=== PATIENT | female | born 1965 | race Caucasian/White ===

== ENCOUNTER 2016-11-29 05:15 | Day surgery (SDC) | payer OTHER ==
[~2016-11-29] VITALS: Ht 165.1 cm; Wt 90.0 kg
[~2016-11-29 05:15] MED LIST: ADVAIR 250/501 DISK IH; ALAVERT10 MG PO; ALBUTEROL SULF8.5 GM IH; ALPRAZOLAM0.5 MG PO; AMITRIPTYLINE H75 MG PO; AMLODIPINE BES2.5 MG; AMLODIPINE BESY10 MG PO; AMLODIPINE BESYL5 MG PO; AMOXICILLIN250 MG PO; ANTI-ITCH56 GM TP; ASPIR-LOW81 MG PO; ASPIRIN81 M1 PO; ASPIRIN81 M2 PO; ASTELIN137 MCG/0. NS; ATIVAN1 MG PO; AUGMENTIN875 MG PO; BACTRIM,SEPT1 TABLET PO; BUSPAR15 MG PO; CALCIUM + D 601 EACH PO; CELEBREX200 MG PO; CEPHALEXIN250 M2 NG; CLEOCIN300 MG PO; CLONAZEPAM1 M1 PO; COMBIVENT200 INHALA IH; CRESTOR20 MG PO; CRESTOR40 MG PO; CYCLOBENZAPRINE10 MG PO; CYMBALTA20 MG PO; CYMBALTA30 MG PO; CYMBALTA60 MG PO; DAYTRANA20 MG PO; DETROL2 MG PO; DIOVAN160 MG PO; DIOVAN320 MG PO; DOXYCYCLINE HY100 MG PO; Diovan PO; EFFEXOR XR150 MG PO; EFFEXOR XR75 MG PO; ESTR PO; FIORICET 50-301 EACH PO; FISH OIL 1,2001 EAC3 PO; FLEXERIL10 MG PO; FLEXERIL5 MG PO; FLONASE16 G1 BOTH NARES; FLOVENT 22120 INHALA IH; FLOVENT DISKUS1 DIS2 IH; FUROSEMIDE20 MG PO; GABAPENTIN600 MG PO; GABAPENTIN800 MG PO; GLUCOPHAGE1000 MG PO; HUMALOG MI100 UNIT/4 SQ; HYDROCODON-ACE1 EAC7 PO; IBUPROFEN600 MG PO; IBUPROFEN800 MG PO; INDOCIN25 MG PO; IPRATR-ALBUTEROL3 ML IH; IRON325 MG PO; KEFLEX500 MG PO; LABETOLOL PO; LANTUS 10100 UNITS/ SC; LANTUS SC; LASIX20 MG PO; LEVAQUIN500 MG PO; LEVAQUIN750 MG PO; LIDOCAINE20 MG/1 M5 PO; LIDODERM 5% P1 PATCH PO; LISINOPRIL30 MG PO; Lasix PO; MEDROL DOSEPAK4 MG PO; MELATONIN5 M1 PO; MELATONIN5 M3 PO; METFORMIN HCL1000 M1 PO; MORPHINE SULFAT15 M1 PO; MOTRIN800 MG PO; MUCINEX D ER T1 EACH PO; MULTI-BETIC TA1 EACH PO; MULTIVITAMIN PO; MULTIVITAMIN1 EAC2 PO; NAPROSYN500 MG PO; NAPROXEN500 MG PO; NEURONTIN800 MG PO; NEXIUM40 MG PO; NORCO 5/3251 TABLET PO; NORCO 7.5/321 TABLET PO; NORVASC10 MG PO; NORVASC2.5 MG PO; NORVASC5 MG PO; Neurontin PO; Norvasc PO; OMEPRAZOLE20 MG PO; OXYCODONE HCL10 M1 PO; OXYCODONE5 MG PO; PEPCID20 MG PO; PERCOCET 10/1 TABLET PO; PERCOCET 5/31 TABLET PO; PREDNISONE10 MG PO; PREDNISONE20 MG PO; PREDNISONE50 MG PO; PREMARIN VAGI42.5 GM; PREMARIN VAGI42.5 GM TP; PREMARIN VAGI42.5 GM VG; PRILOSEC20 MG PO; PROAIR HFA8.5 GM IH; PROBIOTIC1 EAC1 PO; PROBIOTIC1 EAC2 PO; PROTONIX40 MG PO; Percocet 5/325,Endoc PO; Proventil,Ventolin H IH; RISPERDAL1 MG PO; SOMA350 MG PO; SPIRIVA1 INHALATI IH; SYMBICORT60 INHALA1 IH; TESSALON PERLE100 MG PO; TESSALON200 MG PO; TORADOL10 MG PO; TRAMADOL HCL50 MG PO; TRAZODONE HCL150 MG PO; TRICOR145 MG PO; TYLENOL 8 HOUR650 MG PO; ULTRAM50 MG PO; VERAPAMIL HCL180 MG PO; VERELAN 180 MG180 MG PO; VESICARE10 MG PO; VICODIN 5-3001 EACH PO; VIT C 500 MG-E500 MG PO; VITAMIN D32000 UNI1 PO; VOLTAREN75 MG PO; XANAX0.5 MG PO; ZITHROMAX Z-PA250 MG PO; ZOFRAN8 MG PO; [UNRECOGNIZED DRUG - OTHER] PO
[2016-11-29] MEDS ORDERED: SPIRIVA1 INHALATI IH (06:10)
[2016-11-29] MEDS ORDERED: SYMBICORT60 INHALAT IH (06:11)
[2016-11-29 06:13] VITALS: BP 102/56
[2016-11-29 06:24] LABS: EOSINOPHIL COUNT 0.1 K/uL (0-0.3); HEMATOCRIT 35.1 % (36.0-46.0); IMMATURE GRANULOCYTE (%) 0.3 % (0.0-0.7); IMMATURE GRANULOCYTE COUNT 0.2 K/uL; LYMPHOCYTE COUNT 2.9 K/uL (1.0-2.8); MCH 28.6 PG (29.0-34.0); MCHC 33.6 G/DL (30.0-36.0); MEAN PLAT.VOLUME 9.5 uM^3 (9.5-12.4); MONOCYTE (%) 9.1 % (3-12); MONOCYTE COUNT 0.6 K/uL (0-0.8); NEUTROPHIL (%) 42.9 % (45-76); NEUTROPHIL COUNT 2.8 K/uL (1.8-6.4); PLATELET COUNT 265 K/uL (156-360); RBC DIS.WIDTH-SD 39.4 % (39-53); RED BLOOD COUNT 4.13 M/uL (3.80-5.20); WHITE BLOOD COUNT 6.4 K/uL (4.1-10.2)
[2016-11-29 06:32] LABS: CHLORIDE 103 mEq/L (99-109); SODIUM 138 mEq/L (136-147)
[2016-11-29 06:35] LABS: GLUCOSE 175 mg/dL (70-99)
[2016-11-29 06:36] LABS: ANION GAP 12 MEQ/L (2-14); TOTAL BILIRUBIN 0.2 mg/dL (0.0-1.0)
[2016-11-29 06:38] LABS: ALKALINE PHOSPHATASE 51 IU/L (3-129); GFR ESTIMATE (CALCULATED) 34 mL/min/
[2016-11-29 06:39] LABS: UREA NITROGEN (BUN) 35 mg/dL (9-23)
[2016-11-29 06:47] LABS: QUANTITATIVE HCG 5.3 MIU/ML
[2016-11-29 07:40] LABS: METH RESISTANT S AUREUS PCR NEGATIVE (NEGATIVE)
[2016-11-29 07:43] LABS: PROBE CHECK PASS; SPECIMEN PROCESSING CONTROL PASS
[2016-11-29 09:55] VITALS: BP 90/48
[2016-11-29 10:25] VITALS: BP 90/56
== END 2016-11-29 10:25 | disposition home or self-care (01) ==
LOC: SDC 05:15
PROVIDERS: Obstetrics & Gynecology
DX: N87.9 Dysplasia of cervix uteri, unspecified (principal); R87.810 Cervical high risk human papillomavirus (HPV) DNA test positive; F17.200 Nicotine dependence, unspecified, uncomplicated; F41.9 Anxiety disorder, unspecified; J45.909 Unspecified asthma, uncomplicated; I10 Essential (primary) hypertension; E78.5 Hyperlipidemia, unspecified
CPT/HCPCS: 80053; 82948; 84702; 85025; 87641; 88305; 88307; J1100; J1170; J1885; J2250; J2405; J3010

== ENCOUNTER 2016-12-12 20:30 | Emergency (ER) | payer OTHER ==
[~2016-12-12] VITALS: Ht 165.1 cm; Wt 93.4 kg
[~2016-12-12 20:30] MED LIST changes: +SYMBICORT60 INHALAT IH
[2016-12-12 21:02] LABS: MCH 28.4 PG (29.0-34.0); MCHC 32.7 G/DL (30.0-36.0); MCV 86.8 FL (83-99); MEAN PLAT.VOLUME 9.4 uM^3 (9.5-12.4); PLATELET COUNT 215 K/uL (156-360); RBC DIS.WIDTH-CV 12.7 % (11.8-14.6); RBC DIS.WIDTH-SD 38.9 % (39-53); WHITE BLOOD COUNT 9.3 K/uL (4.1-10.2)
[2016-12-12 21:13] LABS: CHLORIDE 101 mEq/L (99-109); POTASSIUM 4.3 mEq/L (3.7-5.4); SODIUM 136 mEq/L (136-147)
[2016-12-12 21:15] LABS: GLUCOSE 224 mg/dL (70-99)
[2016-12-12 21:16] LABS: ANION GAP 7 MEQ/L (2-14)
[2016-12-12 21:17] LABS: TOTAL BILIRUBIN 0.3 mg/dL (0.0-1.0)
[2016-12-12 21:19] LABS: ALKALINE PHOSPHATASE 58 IU/L (3-129); GFR ESTIMATE (CALCULATED) 42 mL/min/
[2016-12-12 21:20] LABS: UREA NITROGEN (BUN) 28 mg/dL (9-23)
[2016-12-12 21:22] LABS: LIPASE 10 U/L (1.0-51.0)
[2016-12-12 21:30] LABS: QUANTITATIVE HCG < 4.0 MIU/ML
[2016-12-12 22:23] LABS: ADD MIUA? YES; BILIRUBIN NEGATIVE; BLOOD NEGATIVE; COLOR YELLOW ((YELLOW)); GLUCOSE (STRIP) 100; KETONES NEGATIVE; LEUKOCYTES MODERATE; NITRITE NEGATIVE; PROTEIN (STRIP) NEGATIVE; SPECIFIC GRAVITY 1.018 (1.000-1.030); UROBILINOGEN 0.2 MG/DL (0.2-1.0)
[2016-12-12 22:54] LABS: AMORPHOUS URATES CRYSTALS 1+; BACTERIA 1+ /HPF; CASTS NONE SEEN /LPF; CRYSTALS PRESENT; EPITHELIAL CELLS 1+ /HPF; MUCUS NONE SEEN /LPF; RED BLOOD CELLS 0-5 /HPF (0-5); UCUL ADDED? NO
[2016-12-13 00:35] VITALS: BP 110/73
== END 2016-12-13 00:40 | disposition home or self-care (01) ==
LOC: EME 20:30
DX: R10.30 Lower abdominal pain, unspecified (principal); Z85.41 Personal history of malignant neoplasm of cervix uteri; G89.29 Other chronic pain; E11.9 Type 2 diabetes mellitus without complications; E78.5 Hyperlipidemia, unspecified; R56.9 Unspecified convulsions; Z96.653 Presence of artificial knee joint, bilateral; Z96.612 Presence of left artificial shoulder joint; F17.200 Nicotine dependence, unspecified, uncomplicated
CPT/HCPCS: 74177; 80053; 81003; 83690; 84702; 85027; 99281; 99284; J3010; J7030

== ENCOUNTER 2017-01-17 23:11 | Emergency (ER) | payer OTHER ==
[~2017-01-17] VITALS: Ht 165.1 cm; Wt 93.8 kg
[2017-01-17 23:24] VITALS: BP 113/80
[2017-01-17 23:49] LABS: HEMATOCRIT 34.9 % (36.0-46.0); MCH 28.2 PG (29.0-34.0); MCHC 33.2 G/DL (30.0-36.0); MCV 84.9 FL (83-99); MEAN PLAT.VOLUME 9.4 uM^3 (9.5-12.4); PLATELET COUNT 279 K/uL (156-360); RBC DIS.WIDTH-CV 12.3 % (11.8-14.6); RBC DIS.WIDTH-SD 37.4 % (39-53); RED BLOOD COUNT 4.11 M/uL (3.80-5.20); WHITE BLOOD COUNT 8.2 K/uL (4.1-10.2)
[2017-01-17 23:58] LABS: CHLORIDE 98 mEq/L (99-109); SODIUM 132 mEq/L (136-147)
[2017-01-18 00:01] LABS: ANION GAP 9 MEQ/L (2-14)
[2017-01-18 00:03] LABS: SERUM ETHYL ALCOHOL < 10 mg/dL
[2017-01-18 00:04] LABS: GFR ESTIMATE (CALCULATED) 42 mL/min/
[2017-01-18 00:05] LABS: UREA NITROGEN (BUN) 26 mg/dL (9-23)
[2017-01-18 00:09] LABS: GLUCOSE 414 mg/dL (70-99)
[2017-01-18 00:13] LABS: QUANTITATIVE HCG 10.3 MIU/ML
== END 2017-01-18 01:03 | disposition home or self-care (01) ==
LOC: EME → EDBD 23:11 → EME 23:11
PROVIDERS: Emergency Medicine
DX: F32.9 Major depressive disorder, single episode, unspecified (principal); S31.119A Laceration without foreign body of abdominal wall, unspecified quadrant without penetration into peritoneal cavity, initial encounter; X78.8XXA Intentional self-harm by other sharp object, initial encounter; F43.9 Reaction to severe stress, unspecified; E11.65 Type 2 diabetes mellitus with hyperglycemia; C55 Malignant neoplasm of uterus, part unspecified
CPT/HCPCS: 80048; 81003; 84702; 85027; 90837; 99281; 99285; G0480

== ENCOUNTER 2017-01-21 23:05 | Inpatient (IN) | payer OTHER ==
[~2017-01-21] VITALS: Ht 165.1 cm; Wt 93.0 kg
[2017-01-22 00:22] LABS: EOSINOPHIL (%) 0 % (0-5); HEMATOCRIT 34.5 % (36.0-46.0); IMMATURE GRANULOCYTE (%) 0.5 % (0.0-0.7); IMMATURE GRANULOCYTE COUNT 0.1 K/uL; INSTRUMENT ABS NEUTROPHIL CT 14.6 K/uL; LYMPHOCYTE COUNT 2.2 K/uL (1.0-2.8); MCH 28.5 PG (29.0-34.0); MCHC 34.2 G/DL (30.0-36.0); MCV 83.3 FL (83-99); MEAN PLAT.VOLUME 9.9 uM^3 (9.5-12.4); MONOCYTE (%) 5.1 % (3-12); MONOCYTE COUNT 0.9 K/uL (0-0.8); NEUTROPHIL (%) 82.1 % (45-76); NEUTROPHIL COUNT 14.6 K/uL (1.8-6.4); PLATELET COUNT 216 K/uL (156-360); RBC DIS.WIDTH-CV 12.1 % (11.8-14.6); RBC DIS.WIDTH-SD 36.8 % (39-53); RED BLOOD COUNT 4.14 M/uL (3.80-5.20)
[2017-01-22 00:25] LABS: WHITE BLOOD COUNT 17.8 K/uL (4.1-10.2)
[2017-01-22 00:34] LABS: CHLORIDE 98 mEq/L (99-109); POTASSIUM 4.9 mEq/L (3.7-5.4); SODIUM 134 mEq/L (136-147)
[2017-01-22 00:36] LABS: GLUCOSE 192 mg/dL (70-99)
[2017-01-22 00:37] LABS: ANION GAP 12 MEQ/L (2-14)
[2017-01-22 00:38] LABS: TOTAL BILIRUBIN 0.7 mg/dL (0.0-1.0)
[2017-01-22 00:40] LABS: ALKALINE PHOSPHATASE 67 IU/L (3-129); GFR ESTIMATE (CALCULATED) 39 mL/min/
[2017-01-22 00:42] LABS: TROP-I INTERPRETATION NEGATIVE; TROPONIN-I 0.02 ng/mL (0.0-0.30)
[2017-01-22 00:43] LABS: CREATINE KINASE 360 IU/L (1-294); LIPASE 3 U/L (1.0-51.0)
[2017-01-22 00:47] LABS: D-DIMER ELISA 0.46 mg/L FEU (< 0.57)
[2017-01-22 00:49] LABS: UREA NITROGEN (BUN) 42 mg/dL (9-23)
[2017-01-22 01:03] LABS: ADD MIUA? NO; BILIRUBIN NEGATIVE; BLOOD NEGATIVE; COLOR YELLOW ((YELLOW)); GLUCOSE (STRIP) >=500; KETONES NEGATIVE; LEUKOCYTES NEGATIVE; NITRITE NEGATIVE; PROTEIN (STRIP) NEGATIVE; UCUL ADDED? NO; UROBILINOGEN 0.2 MG/DL (0.2-1.0)
[2017-01-22 05:38] VITALS: BP 126/67
[2017-01-22 05:57] VITALS: BP 126/67
[2017-01-22 06:04] LABS: ANION GAP 8 MEQ/L (2-14); CHLORIDE 103 MEQ/L (99-109); GFR ESTIMATE (CALCULATED) 50 mL/min/; POTASSIUM 4.3 MEQ/L (3.7-5.4); SAMPLE HEMOLYSIS CHECK 0; SAMPLE ICTERIC CHECK 0; SAMPLE LIPEMIA CHECK 0; SODIUM 136 MEQ/L (136-147); UREA NITROGEN (BUN) 35 mg/dL (9-23)
[2017-01-22 06:05] LABS: GLUCOSE 109 mg/dL (70-99)
[2017-01-22 06:30] LABS: HEMATOCRIT 29.4 % (36.0-46.0); MCH 28.1 PG (29.0-34.0); MCHC 33.3 G/DL (30.0-36.0); MCV 84.2 FL (83-99); MEAN PLAT.VOLUME 10.1 uM^3 (9.5-12.4); PLATELET COUNT 197 K/uL (156-360); RBC DIS.WIDTH-CV 12.4 % (11.8-14.6); RBC DIS.WIDTH-SD 37.6 % (39-53); RED BLOOD COUNT 3.49 M/uL (3.80-5.20); WHITE BLOOD COUNT 12.8 K/uL (4.1-10.2)
[2017-01-22 08:29] VITALS: BP 108/56
[2017-01-22 11:53] LABS: POINT-OF-CARE METER ID UU14188577
== END 2017-01-22 12:00 | disposition left against medical advice (07) | DRG 195 ==
LOC: EME → EDBD 23:05 → 3EAST 01-22 03:49 → EDOF 01-22 03:49 → 3EAST 01-22 04:41
PROVIDERS: Emergency Medicine; Family Medicine Sports Medicine
DX: J18.9 Pneumonia, unspecified organism (principal); J44.9 Chronic obstructive pulmonary disease, unspecified; R56.9 Unspecified convulsions; J38.00 Paralysis of vocal cords and larynx, unspecified; G62.9 Polyneuropathy, unspecified; R09.02 Hypoxemia; R19.7 Diarrhea, unspecified; E11.9 Type 2 diabetes mellitus without complications; E78.5 Hyperlipidemia, unspecified; G43.909 Migraine, unspecified, not intractable, without status migrainosus; I45.6 Pre-excitation syndrome; F41.9 Anxiety disorder, unspecified; Z96.653 Presence of artificial knee joint, bilateral; Z96.612 Presence of left artificial shoulder joint; F17.210 Nicotine dependence, cigarettes, uncomplicated
CPT/HCPCS: 71010; 71250; 74176; 80048 91; 80053; 81003; 82550; 82948; 83605; 83690; 84484; 85025; 85027; 85379; 87040; 93005; 94640; 94799; 99202; 99281; 99285; J0456; J0696; J1650; J1956; J2405; J7030; J7050